=== PATIENT | male | born 1970 | race Caucasian/White ===

== ENCOUNTER 2019-07-11 15:26 | Emergency (ER) | payer OTHER ==
[~2019-07-11] VITALS: Ht 175.3 cm; Wt 76.2 kg
[2019-07-11 15:34] VITALS: BP 125/96
--- NOTE | 2019-07-11 15:51 | NUR ---
Patient discharged to home in stable condition. Written and verbal after care instructions given. Patient verbalizes understanding of instruction.
== END 2019-07-11 15:52 ==
LOC: ER 15:30
DX: Z02.89 Encounter for other administrative examinations (principal); I10 Essential (primary) hypertension